=== PATIENT | male | born 1990 | race Caucasian/White ===

== ENCOUNTER 2022-03-02 02:45 | Emergency (ER) | payer OTHER ==
[~2022-03-02] VITALS: Ht 188 cm; Wt 97.5 kg
[2022-03-02 02:45] VITALS: BP 142/96
--- NOTE | 2022-03-02 02:45 | NUR ---
BIBA ALS TO BED 8
[2022-03-02] MEDS ORDERED: methylPREDNISolone SS 40 MG in WATER STERILE 1 ML IM ONE (02:50)
--- NOTE | 2022-03-02 02:51 | NUR ---
ERMD AT BEDSIDE 2759
[2022-03-02] MEDS ORDERED: methylPREDNISolone SS 40 MG/ML VIAL ONE (02:58)
[2022-03-02] MEDS ORDERED: WATER STERILE 10 ML MC ONE (02:58)
--- NOTE | 2022-03-02 03:41 | NUR ---
31 Y/O M BIBA FOR SOB. PT STATES HE WAS SLEEPING THEN WOKE UP VOMITING AND CHOKING. PT THEN BECAME SOB .PT STATES N/V X 1 HOUR. SKIN IS PINK/WARM/DRY; AAOX4 WITH EVEN AND STEADY GAIT; LUNGS HAVE BILAT WHEEZES. HR EVEN AND REGULAR; ; PATIENT STATES PAIN OF 0/10 AT THIS TIME; PT STATES MORE DISCOMFORT THAN PAIN. VSS 02 SAT 95 % ON RA; PATIENT POSITIONED FOR COMFORT; HOB ELEVATED; BEDRAILS UP X2; BED DOWN. ER MD MADE AWARE OF PT STATUS. PMH: CHILDHPPD ASTHMA, HIGH CHOLESTEROL RX: NONE; NKA
--- NOTE | 2022-03-02 04:19 | NUR ---
Patient appears to be resting comfortably in bed. Vital Signs within normal limits. Respirations even and unlabored.
[2022-03-02] MEDS ORDERED: ALBU0.0912 IH (04:43)
[2022-03-02] MEDS ORDERED: PRED20TA5 PO (04:43)
[2022-03-02 04:55] VITALS: BP 133/79
--- NOTE | 2022-03-02 04:55 | NUR ---
Patient discharged with v/s stable. Written and verbal after care instructions given and explained. Patient alert, oriented and verbalized understanding of instructions. Ambulatory with steady gait. All questions addressed prior to discharge. ID band removed. Patient advised to follow up with PMD. Rx of albuterol and prednison given. Opportunity to ask questions provided and answered.
--- NOTE | 2022-03-02 04:56 | NUR ---
Chart checked and completed.
== END 2022-03-02 04:55 | disposition home or self-care (01) ==
LOC: MED 02:45
DX: J45.901 Unspecified asthma with (acute) exacerbation (principal); R11.2 Nausea with vomiting, unspecified; F17.290 Nicotine dependence, other tobacco product, uncomplicated; Z79.899 Other long term (current) drug therapy
CPT/HCPCS: 71045; 96372; 99285; J2920; Q0092